=== PATIENT | female | born 1960 | race Caucasian/White ===

== ENCOUNTER 2019-03-16 12:23 | Emergency (ER) | payer SELFPAY ==
[2019-03-16] MEDS ORDERED: ONDANSETRON 4 MG TAB.RAPDIS PO ONE (14:18)
--- NOTE | 2019-03-16 14:22 | ER Document Report ---
ED Medical Screen (RME) - General Chief Complaint: Nausea/Vomiting/Diarrhea Stated Complaint: NAUSEA,VOMITING Time Seen by Provider: 03/16/19 14:14 - HPI Notes: 03/16/19 14:18 Patient is a 59-year-old female with a history of depression, irritable bowel syndrome/disease, hernia repair 3 years ago who presents complaining of a dull pain to her mid abdomen that is been present for 6 months to 1 year, but increasing over the past several weeks. Patient states that she does have nausea, vomiting, and watery diarrhea that began yesterday. She is otherwise urinating normally. No other concerns or complaints. No other surgical history to her abdomen. Denies OSORIO, fever, neck pain, URI, CP, SOB, dysuria, back pain, or rash. I have treated and performed a rapid initial assessment of this patient. A comprehensive ED assessment and evaluation of the patient, analysis of test results and completion of medical decision making process will be conducted by additional ED providers. PHYSICAL EXAMINATION: GENERAL: Well-appearing, well-nourished and in no acute distress. A&Ox4. Answers questions appropriately. LUNGS: Breath sounds clear to auscultation bilaterally and equal. No wheezes rales or rhonchi. HEART: Regular rate and rhythm without murmurs, rubs, gallops. ABDOMEN: Soft, nondistended abdomen. No guarding, no rebound. Normal bowel sounds present. No CVA tenderness bilaterally. + mild mid abd tenderness (cannot elicit thorough abd exam w/o bed, however). NEUROLOGICAL: Normal speech, normal gait. PSYCH: Normal mood, normal affect. - Related Data Allergies/Adverse Reactions: Penicillins Allergy (Verified 03/16/19 12:26) cephalexin monohydrate [From Keflex] Adverse Reaction (Verified 03/16/19 12:26) Physical Exam - Vital signs Vitals: Temp Pulse Resp BP Pulse Ox 98.4 F 77 15 128/73 H 95 03/16/19 12:37 03/16/19 12:37 03/16/19 12:37 03/16/19 12:37 03/16/19 12:37 Course - Vital Signs Vital signs: Temp Pulse Resp BP Pulse Ox 98.4 F 77 15 128/73 H 95 03/16/19 12:37 03/16/19 12:37 03/16/19 12:37 03/16/19 12:37 03/16/19 12:37
[2019-03-16 14:52] LABS: ABSOLUTE MONOCYTES (AUTO) 0.5 10^3/uL (0.1-1.4); ABSOLUTE NEUT (AUTO) 5.8 10^3/uL (1.7-8.2); BASOPHILS % (AUTO) 0.6 % (0-2); EOSINOPHILS % (AUTO) 0.4 % (0-6); HEMATOCRIT 42.2 % (36.0-47.0); HEMOGLOBIN 14.4 g/dL (12.0-15.5); LYMPHOCYTES % (AUTO) 13.1 % (13-45); MEAN CORPUSCULAR HEMOGLOBIN 28.8 pg (27.0-33.4); MEAN CORPUSCULAR VOLUME 85 fl (80-97); MONOCYTES % (AUTO) 6.5 % (3-13); PLATELET COUNT 272 10^3/uL (150-450); RED BLOOD COUNT 4.99 10^6/uL (3.72-5.28); RED CELL DISTRIBUTION WIDTH 12.6 % (11.5-14.0); SEGMENTED NEUTROPHILS % (AUTO) 79.4 % (42-78); TOTAL CELLS COUNTED % (AUTO) 100 %; WHITE BLOOD COUNT 7.3 10^3/uL (4.0-10.5)
[2019-03-16 15:20] LABS: ALANINE AMINOTRANSFERASE 25 U/L (9-52); ALBUMIN 4.1 g/dL (3.5-5.0); ALKALINE PHOSPHATASE 102 U/L (38-126); ANION GAP 9 (5-19); ASPARTATE AMINO TRANSFERASE 19 U/L (14-36); BILIRUBIN,DIRECT 0.3 mg/dL (0.0-0.4); BILIRUBIN,TOTAL 0.4 mg/dL (0.2-1.3); BLOOD UREA NITROGEN 10 mg/dL (7-20); CALCIUM 9.4 mg/dL (8.4-10.2); CARBON DIOXIDE 27 mmol/L (22-30); CHLORIDE 102 mmol/L (98-107); GLUCOSE 90 mg/dL (75-110); LIPASE 159.6 U/L (23-300); POTASSIUM 4.2 mmol/L (3.6-5.0); SODIUM 138.4 mmol/L (137-145); TOTAL PROTEIN 6.4 g/dL (6.3-8.2)
--- NOTE | 2019-03-16 18:35 | RADIOLOGY REPORT (SQ) ---
EXAM DESCRIPTION: CT ABD/PELVIS WITH IV ORAL COMPLETED DATE/TIME: 03/16/2019 6:13 pm REASON FOR STUDY: Abd pain n/v COMPARISON: None. TECHNIQUE: CT scan of the abdomen and pelvis performed using helical scanning technique with dynamic intravenous contrast injection. No oral contrast. Images reviewed with lung, soft tissue, and bone windows. Reconstructed coronal and sagittal MPR images reviewed. Delayed images for evaluation of the urinary system also acquired. All images stored on PACS. All CT scanners at this facility use dose modulation, iterative reconstruction, and/or weight based d osing when appropriate to reduce radiation dose to as low as reasonably achievable (ALARA). [facility]: Dose Right [facility]: CareDose [facility]: Dose Right [facility]: Teradose 4D [facility]: GT Solar CONTRAST TYPE AND DOSE: contrast/concentration: Isovue 350.00 mg/ml; Total Contrast Delivered: 100.0 ml; Total Saline Delivered: 27.5 ml RENAL FUNCTION: BUN 10; creatinine 0.59 RADIATION DOSE: CT Rad equipment meets quality standard of care and radiation dose reduction techniq ues were employed. CTDIvol: 18.6 - 19.7 mGy. DLP: 2115 mGy-cm.. LIMITATIONS: None. FINDINGS: LOWER CHEST: No significant findings. No nodules or infiltrates. LIVER: Normal size. No masses. No dilated ducts. SPLEEN: Normal size. No focal lesions. PANCREAS: No masses. No significant calcifications. No adjacent inflammation or peripancreatic fluid collections. Pancreatic duct not dilated. GALLBLADDER: Surgically absent. ADRENAL GLANDS: No significant masses or asymmetry. RIGHT KIDNEY AND URETER: No solid masses. No significant calcifications. No hydronephrosis or hyd roureter. LEFT KIDNEY AND URETER: No solid masses. No significant calcifications. No hydronephrosis or hydr oureter. AORTA AND VESSELS: No aneurysm. No dissection. Renal arteries, SMA, celiac without stenosis. RETROPERITONEUM: No retroperitoneal adenopathy, hemorrhage or masses. BOWEL AND PERITONEAL CAVITY: Status post bariatric surgery. No masses or inflammatory changes. No fr ee fluid or peritoneal masses. APPENDIX: Surgically absent. PELVIS: No mass. No free fluid. Normal bladder. ABDOMINAL WALL: A fat containing midline supraumbilical hernia measures on the order of 1.8 cm at the neck. BONES: Degenerative changes are seen of the hips and spine. OTHER: No other significant finding. IMPRESSION: NO SIGNIFICANT OR ACUTE FINDING IN THE ABDOMEN OR PELVIS ON CT SCAN WITH IV CONTRAST. TECHNICAL DOCUMENTATION: JOB ID: [id number] Quality ID # [id number]: Final reports with documentation of one or more dose reduction techniques (e.g., Au tomated exposure control, adjustment of the mA and/or kV according to patient size, use of iterative reconstruction technique) 2010 [employer]- All Rights Reserved Reading location - IP/workstation name: [email or web address]
--- NOTE | 2019-03-16 19:45 | ER Document Report ---
ED General - General Chief Complaint: Nausea/Vomiting/Diarrhea Stated Complaint: NAUSEA,VOMITING Time Seen by Provider: 03/16/19 14:14 Primary Care Provider: MAYTE CRAWFORD MD [Primary Care Provider] - Follow up as needed Notes: Patient is a 59-year-old female with a history of depression, irritable bowel syndrome/disease, hernia repair 3 years ago who presents complaining of a dull pain to her mid abdomen that is been present for 6 months to 1 year, but increasing over the past several weeks. Patient states that she does have nausea, vomiting, and watery diarrhea that waxes and wanes again over the past 1 year. Has seen her GI physician, had a colonoscopy, endoscopy all without etiology to her symptoms. She describes her abdominal pain as being a cramping, generalized, moderate to severe pain. No obvious exacerbating or alleviating factors. Has not had weight loss. No hematochezia, melena or hematemesis. No trauma to the abdomen. States that the only one that is different today is that her pain was more intense than usual prompting a visit to the emergency department. - Related Data Allergies/Adverse Reactions: Penicillins Allergy (Verified 03/16/19 12:26) cephalexin monohydrate [From Keflex] Adverse Reaction (Verified 03/16/19 12:26) Past Medical History - General Information source: Patient - Social History Smoking Status: Never Smoker Chew tobacco use (# tins/day): No Frequency of alcohol use: None Drug Abuse: None Lives with: Spouse/Significant other Family History: Reviewed & Not Pertinent Patient has suicidal ideation: No Patient has homicidal ideation: No Neurological Medical History: Reports: Hx Migraine Renal/ Medical History: Denies: Hx Peritoneal Dialysis Psychiatric Medical History: Reports: Hx Depression Past Surgical History: Reports: Hx Abdominal Surgery - hernia Review of Systems - Review of Systems Notes: Constitutional: Negative for fever. HENT: Negative for sore throat. Eyes: Negative for visual changes. Cardiovascular: Negative for chest pain. Respiratory: Negative for shortness of breath. Gastrointestinal: Positive for abdominal pain, vomiting, diarrhea Genitourinary: Negative for dysuria. Musculoskeletal: Negative for back pain. Skin: Negative for rash. Neurological: Negative for headaches, weakness or numbness. 10 point ROS negative except as marked above and in HPI. Physical Exam - Vital signs Vitals: Temp Pulse Resp BP Pulse Ox 98.4 F 77 15 128/73 H 95 03/16/19 12:37 03/16/19 12:37 03/16/19 12:37 03/16/19 12:37 03/16/19 12:37 Interpretation: Normal Notes: PHYSICAL EXAMINATION: GENERAL: Well-appearing, well-nourished and in no acute distress. HEAD: Atraumatic, normocephalic. EYES: Pupils equal round and reactive to light, extraocular movements intact, sclera anicteric, conjunctiva are normal. ENT: nares patent, oropharynx clear without exudates. Moist mucous membranes. NECK: Normal range of motion, supple without lymphadenopathy LUNGS: Breath sounds clear to auscultation bilaterally and equal. No wheezes rales or rhonchi. HEART: Regular rate and rhythm without murmurs ABDOMEN: Soft, nontender, normoactive bowel sounds. No guarding, no rebound. No masses appreciated. EXTREMITIES: Normal range of motion, no pitting or edema. No cyanosis. NEUROLOGICAL: No focal neurological deficits. Moves all extremities spontaneously and on command. PSYCH: Normal mood, normal affect. SKIN: Warm, Dry, normal turgor, no rashes or lesions noted. Course - Re-evaluation Re-evalutation: 03/16/19 19:43 Patient presents with 6 months of chronic daily abdominal pain with associated nausea, dry heaving, diarrhea. Has had colonoscopy, endoscopy, 2 CT images, laboratory work all unremarkable. In triage a battery of laboratory tests and a CT the abdomen pelvis were again ordered and are again noted to be normal. The patient has no focal abdominal tenderness on examination. Able to tolerate oral intake here without any difficulty. She is status post cholecystectomy, bypass surgery, hysterectomy. Do not clinically suspect pancreatitis, bowel obstruction, bowel perforation, bowel infection, bowel ischemia, or any alternative life-threatening condition given chronic duration of symptoms, normal vitals, reassuring labs and imaging. Have advised the patient that she needs to continue following with her GI doctor and consider referral to a tertiary center given the ongoing nature of her symptoms. - Vital Signs Vital signs: Temp Pulse Resp BP Pulse Ox 98.6 F 69 14 138/73 H 97 03/16/19 20:21 03/16/19 20:21 03/16/19 20:21 03/16/19 20:21 03/16/19 20:21 - Laboratory Result Diagrams: 03/16/19 14:25 03/16/19 14:25 Laboratory results interpreted by me: 03/16/19 14:25 Seg Neutrophils % 79.4 H - Diagnostic Test Radiology reviewed: Reports reviewed Discharge - Discharge Clinical Impression: Chronic abdominal pain, Nausea vomiting and diarrhea Condition: Good Disposition: HOME, SELF-CARE Additional Instructions: You have been seen in the Emergency Department (ED) for abdominal pain. Your evaluation did not identify a clear cause of your symptoms but was generally r eassuring. Please follow up with your doctor as soon as possible regarding today's emergent visit and the symptoms that are bothering you. Return to the ED if your abdominal pain worsens or fails to improve, you develop bloody vomiting, bloody diarrhea, you are unable to tolerate fluids due to vom iting, fever greater than 101, or other symptoms that concern you. Prescriptions: Hyoscyamine Sulfate [Levsin 0.125 Tablet] 0.125 mg PO TID PRN #30 tablet PRN Reason: Referrals: MAYTE CRAWFORD MD [Primary Care Provider] - Follow up as needed
[2019-03-16] MEDS ORDERED: ONDANSETRON ODT 4 MG TAB (6 TAB/ER DISP) PO PRN (20:14)
[2019-03-16] MEDS ORDERED: ONDANSETRON ODT 4 MG TAB (6 TAB/ER DISP) ONE (20:15)
[2019-03-16] MEDS ORDERED: ONDANSETRON HCL INJ/PF 4 MG/2 ML SDV IV ONE (20:16)
[2019-03-16 20:30] VITALS: BP 138/73
== END 2019-03-16 20:30 | disposition home or self-care (01) ==
LOC: ER 12:23
DX: R10.84 Generalized abdominal pain (principal); G89.29 Other chronic pain; R11.2 Nausea with vomiting, unspecified; R19.7 Diarrhea, unspecified; Z87.19 Personal history of other diseases of the digestive system; Z88.0 Allergy status to penicillin
CPT/HCPCS: 99284; 96374; 36415; 83690; 85025; 80053; 74177; S0119; J2405

== ENCOUNTER → 2020-11-15 | Outpatient (CLI) | payer OTHER | LOC: OD 08:16 | PROVIDERS: ATTEND Physician Assistant Medical | DX: L30.9 Dermatitis, unspecified (principal); Z79.899 Other long term (current) drug therapy | CPT/HCPCS: 36415; 86480 ==